=== PATIENT | female | born 1965 | race African-American/Black ===

== ENCOUNTER 2023-01-19 13:38 | Emergency (ER) | payer OTHER ==
[2023-01-19] MEDS ORDERED: Acetaminophen 500 MG TAB ONE (14:52)
== END 2023-01-19 15:46 | disposition home or self-care (01) ==
LOC: CSHERS 13:38
DX: S39.011A Strain of muscle, fascia and tendon of abdomen, initial encounter (principal); S80.211A Abrasion, right knee, initial encounter; F17.200 Nicotine dependence, unspecified, uncomplicated; W19.XXXA Unspecified fall, initial encounter